=== PATIENT | female | born 2000 | race Hispanic/Latino ===

== ENCOUNTER 2022-10-28 04:21 | Emergency (ER) | payer OTHER ==
[2022-10-28] MEDS ORDERED: fentaNYL 50 mcg/mL 1 mL Vial ONE (04:30)
[2022-10-28] MEDS ORDERED: Ondansetron PF 4 MG/2 ML Vial ONE (04:44)
[2022-10-28] MEDS ORDERED: Boostrix 0.5 ML (Tdap) VIAL (>/=7 yrs of age) ONE (04:45)
[2022-10-28 04:52] LABS: Hemoglobin 13.2 g/dL (12.0-16.0); Mean Corpuscular HGB CONC 33.9 g/dL (32.0-36.0); Mean Corpuscular Volume 88.4 fl (78.0-98.0); Mean Platelet Volume 9.6 fL (7.4-10.4); Platelet Count 338 10x3/uL (130-400); RBC Distribution Width 11.7 % (11.5-14.5); White Blood Cell (WBC) Count 12.8 10x3/uL (4.8-10.8)
[2022-10-28 04:54] LABS: Delete Auto Diff?? YES; Manual Diff?? YES
[2022-10-28 04:58] LABS: BHCG - Serum Negative (NEGATIVE); Pregs Control Background? CLEAR/WHITE (CLR/WHITE); Pregs Control Bar Appear? YES (CONTROL BAR)
[2022-10-28 05:10] LABS: ALT (SGPT) 96 U/L (8-55); AST (SGOT) 134 U/L (5-34); Acetaminophen Less than 10 mcg/mL (10.0-30.0); Albumin 4.5 g/dL (3.5-5.0); Alcohol 150.4 mg/dL (Less than 10); Alkaline Phosphatase 110 U/L (40-110); Anion Gap 14 mmol/L (10-20); BUN (Urea Nitrogen) 8 mg/dL (7.0-18.7); Bilirubin, Total 0.4 mg/dL (0.2-1.2); Calc. Creatinine Clearance 0 mL/min (70-130); Calcium 8.9 mg/dL (7.8-10.44); Carbon Dioxide 19 mmol/L (22-29); Chloride 106 mmol/L (98-107); Estimated GFR 101; Globulin 3.2 g/dL (2.4-3.5); Glucose 109 mg/dL (70-105); Potassium 3.2 mmol/L (3.5-5.1); Protein, Total 7.7 g/dL (6.0-8.3); Salicylate Less than 8.0 mg/dL (15.0-30.0); Sodium 136 mmol/L (136-145)
[2022-10-28] MEDS ORDERED: Ketorolac Tromethamine 30 MG/ML VIAL ONE (06:14)
[2022-10-28 06:44] LABS: Band 2 % (5-11); CellaVision Operator ID LAB.JMM; Eosinophils 1 % (0-10); Lymphocytes 17 % (21-51); Monocytes 10 % (0-10); Neutrophil 70 % (42-75); Platelet Adequacy Comment Platelets Normal; RBC Morphology Within Normal Limits; Total Cell Count 99
[2022-10-28] MEDS ORDERED: Potassium Chloride 20 MEQ TAB ONE (06:50)
[2022-10-28] MEDS ORDERED: Iopamidol-370 76% 500 ML MDV (1 ML CHARGE) ONE (11:43)
== END 2022-10-28 07:14 | disposition home or self-care (01) ==
LOC: ERS 04:21
DX: S09.90XA Unspecified injury of head, initial encounter (principal); S83.91XA Sprain of unspecified site of right knee, initial encounter; S83.92XA Sprain of unspecified site of left knee, initial encounter; S63.91XA Sprain of unspecified part of right wrist and hand, initial encounter; S20.219A Contusion of unspecified front wall of thorax, initial encounter; V49.9XXA Car occupant (driver) (passenger) injured in unspecified traffic accident, initial encounter; Z23 Encounter for immunization
CPT/HCPCS: 70450; 70486; 71045; 71260; 72125; 72170; 74177; 80053; 80307; 84703; 85025; 90715; 96374; 96375; G0390; J1885; J2405; J3010; Q9967